=== PATIENT | female | born 1990 | race Caucasian/White ===

== ENCOUNTER 2023-06-05 06:45 | Emergency (ER) | payer OTHER ==
[~2023-06-05] VITALS: Ht 157.5 cm; Wt 59.0 kg
[2023-06-05] MEDS ORDERED: LEVOTHYROXINE137 MCG PO (07:46)
[2023-06-05] MEDS ORDERED: VENTOLIN HFA18 GM (07:46)
[2023-06-05] MEDS ORDERED: LORAZEPAM2 MG (07:46)
[2023-06-05] MEDS ORDERED: HYDROCHLOROTHIA50 MG PO (07:46)
[2023-06-05] MEDS ORDERED: PRAMIPEXOLE0.125 MG PO (07:46)
[2023-06-05] MEDS ORDERED: ONDANSETRON ODT8 MG PO (07:46)
[2023-06-05 08:35] VITALS: BP 144/116
== END 2023-06-05 08:35 | disposition home or self-care (01) ==
LOC: ED 06:45
DX: K59.00 Constipation, unspecified (principal); Z88.8 Allergy status to other drugs, medicaments and biological substances; Z79.899 Other long term (current) drug therapy; Z79.890 Hormone replacement therapy; Z79.51 Long term (current) use of inhaled steroids
CPT/HCPCS: 99283

== ENCOUNTER 2023-08-20 08:27 | Emergency (ER) | payer OTHER ==
[~2023-08-20] VITALS: Ht 157.5 cm; Wt 64.4 kg
[~2023-08-20 08:27] MED LIST: HYDROCHLOROTHIA50 MG PO; LEVOTHYROXINE137 MCG PO; LORAZEPAM2 MG; ONDANSETRON ODT8 MG PO; PRAMIPEXOLE0.125 MG PO; VENTOLIN HFA18 GM
--- OUTSIDE RECORDS SUMMARY | 2023-08-20 08:29 | XMS ---
PreManage Notification: SEEMA HUNT Security Delivery Lead Events No recent Security Events currently on file [facility] There are no care providers on record at this time. [place] has no Care Guidelines for this patient. [place] VISIT COUNT (12 MO.) 2 TRISHA Lopes TOTAL 2 NOTE: Visits indicate total known visits. 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
[2023-08-20] MEDS ORDERED: CYCLOBENZAPRINE10 MG PO (08:38)
[2023-08-20] MEDS ORDERED: HYDROCODON-ACE1 EA10 PO (08:38)
[2023-08-20] MEDS ORDERED: EUTHYROX137 MCG PO (08:38)
[2023-08-20 09:54] LABS: BASOPHILS 0.4 % (0-2); EOSINOPHILS 2.8 % (0-6); HEMATOCRIT 40.6 % (35.0-50.0); HEMOGLOBIN 14.3 g/dL (12.0-18.0); LYMPHOCYTES 10.7 % (24-44); MCH 31.8 (27-36); MCHC 35.1 g/dl (30-36); MCV 90.5 fl (81-99); MONOCYTES 7.1 % (0-12); PLATELET COUNT 360 K/uL (140-440); RBC 4.49 M/ul (4.3-5.7); RDW 13.9 (10.5-15.0)
[2023-08-20 10:16] LABS: ALBUMIN 3.6 g/dL (3.4-5.0); ALBUMIN/GLOBULIN RATIO 0.88 (1.1-2.4); ANION GAP 17.6 (7-21); BILIRUBIN, TOTAL 0.4 ng/dL (0.2-1.0); BUN/CREATININE RATIO 16.09 (6.0-28.6); CALCIUM 8.8 mg/dL (8.5-10.1); CREATININE, SERUM 0.87 mg/dL (0.55-1.02); POTASSIUM 3.6 mmol/L (3.5-5.1); PROTEIN, TOTAL 7.7 g/dL (6.4-8.2)
[2023-08-20 13:20] VITALS: BP 127/102
== END 2023-08-20 13:20 | disposition home or self-care (01) ==
LOC: ED 08:27
PROVIDERS: Emergency Medicine
DX: S22.42XA Multiple fractures of ribs, left side, initial encounter for closed fracture (principal); W00.0XXA Fall on same level due to ice and snow, initial encounter; K59.00 Constipation, unspecified; I10 Essential (primary) hypertension; E03.9 Hypothyroidism, unspecified; Z88.8 Allergy status to other drugs, medicaments and biological substances; Z79.899 Other long term (current) drug therapy; Z79.890 Hormone replacement therapy
CPT/HCPCS: 36415; 71101; 74177; 80053; 84703; 85025; J1885; J2212; J7030; Q9967